=== PATIENT | female | born 1990 | race Caucasian/White ===

== ENCOUNTER 2022-08-20 15:06 | Emergency (ER) | payer OTHER, SELFPAY ==
[2022-08-20 15:15] VITALS: BP 124/68; PULSE 87; RESP 20; TEMP 36.7; O2SAT 99
--- NOTE | 2022-08-20 15:17 | ED.URI ---
HPI - URI/Sore Throat General Chief Complaint: Upper Respiratory Infection Stated Complaint: Upper Respiratory Time Seen by Provider: 08/20/22 15:17 Source: patient, family and RN notes reviewed History of Present Illness HPI Narrative: Patient is a 32-year-old female who presents the urgent care with complaints of hoarse voice, cough, body aches, chills and nasal congestion. Patient states that it started 2 days ago and she was sent home from work due to a COVID exposure. Patient was tested for COVID and it was negative. Patient is wanting repeat COVID testing and to cover all her bases . Patient has 3 children in the home and no symptoms have been shown. Patient has been taking NyQuil and Mucinex and denies of any fever. No other acute complaints. No acute distress noted. Patient aware of the plan of care. Some parts of this dictation were generated by voice recognition software and may contain typographical and/or grammatical inaccuracies. Related Data Home Medications Medication Instructions Recorded Confirmed No Home Medications 08/20/22 08/20/22 Allergies Allergy/AdvReac Type Severity Reaction Status Date / Time Penicillins Allergy Unknown Unknown Verified 08/20/22 15:43 Review of Systems Review of Systems: CONSTITUTIONAL: Denies fever, chills, or sweats. EYES: Denies visual changes, redness, or discharge. ENT: Reports of nasal congestion, hoarse voice CARDIOVASCULAR: Denies chest pain, palpitations, or edema. RESPIRATORY: Reports of cough without dyspnea GASTROINTESTINAL: Denies abdominal pain, nausea, vomiting, or diarrhea. GENITOURINARY: Denies dysuria or hematuria. SKIN: Denies rash or itching. MUSCULOSKELETAL: Denies back pain, joint pain. Reports of body aches NEUROLOGIC: Denies headache, numbness, or weakness. All other systems reviewed are negative, except as documented in HPI. PMFSH Comments At the time of my signature, I reviewed and agree with the nursing past medical, surgical, social, and family history. There is no relevant family history pertinent to the patient complaint. Exam Narrative: GENERAL: This is a well-nourished, well-developed patient, in no apparent distress. HEAD: normocephalic, atraumatic. EYES: PERRL. Sclera clear/white. Vision is grossly intact. EARS: External ears normal, auditory canals clear and without drainage, TMs normal without perforation. Hearing grossly intact. NOSE: External nose normal with no obvious nasal discharge, nares without redness, no rhinorrhea. THROAT: Mucous membranes moist, posterior pharynx clear. Moderate postnasal drainage NECK: Neck supple CARDIOVASCULAR: Regular rate and rhythm without murmurs, gallops, or rubs. RESPIRATORY: Slight crackles throughout without wheezes SKIN: warm, intact with no suspicious lesions or rash, good texture and turgor. NEURO: awake, alert, and oriented to person, place and time. There were no obvious focal neurologic abnormalities. EXTREMITIES: No clubbing, cyanosis, or edema. Course Course Level of Care: Express Care Visit Vital Signs Vital signs: Vital Signs Temperature 98.1 F 08/20/22 15:15 Pulse Rate 87 08/20/22 15:15 Respiratory Rate 20 08/20/22 15:15 Blood Pressure 124/68 08/20/22 15:15 Pulse Oximetry 99 08/20/22 15:15 Oxygen Delivery Room Air 08/20/22 15:15 Temperature 98.1 F 08/20/22 15:15 Pulse Rate 87 08/20/22 15:15 Respiratory Rate 20 08/20/22 15:15 Blood Pressure 124/68 08/20/22 15:15 Pulse Oximetry 99 08/20/22 15:15 Oxygen Delivery Room Air 08/20/22 15:15 Reviewed MDM - URI/Sore Throat MDM Narrative Medical decision making narrative: Patient left prior to discharge. Patient strep swab and flu swab were both negative. Patient is aware that we will be sending a PCR COVID test and will be calling her with results. Patient is also aware that COVID quarantine is only 5 days and she will likely be out of quarantine before her COVID test is resulted.
[2022-08-20 19:14] LABS: SARS-CoV-2 RNA PCR Negative
== END 2022-08-20 16:25 | disposition left against medical advice (07) ==
PROVIDERS: Emergency Provider Nurse Practitioner Family; PCP Family Medicine
DX: J06.9 Acute upper respiratory infection, unspecified (principal); Z20.822 Contact with and (suspected) exposure to COVID-19
CPT/HCPCS: 87081; 87804; 87880; 99203; C9803; G0463; U0003; U0005

== ENCOUNTER 2022-12-29 17:00 | Emergency (ER) | payer OTHER, SELFPAY ==
[2022-12-29 17:04] VITALS: BP 121/84; PULSE 87; RESP 16; TEMP 36.6; O2SAT 100
--- NOTE | 2022-12-29 17:04 | ED.URI ---
HPI - URI/Sore Throat General Chief Complaint: Upper Respiratory Infection Stated Complaint: poss bronchitis Time Seen by Provider: 12/29/22 17:10 Source: patient Mode of arrival: ambulatory Limitations: no limitations History of Present Illness HPI Narrative: Ms. Harrison is a 32-year-old female patient presenting to the clinic today with complaints of possible bronchitis. She reports she is having some hoarseness, mild shortness breath, nonproductive cough that is worse at night. She is a current smoker. She denies any fever or chills. MD elicited complaint: cough and nasal congestion Related Data Allergies Allergy/AdvReac Type Severity Reaction Status Date / Time Penicillins Allergy Unknown Unknown Verified 08/20/22 15:43 Review of Systems Review of Systems: Pertinent positives per HPI. Patient denies any fever, chills, rash, headache, visual changes, dizziness, chest pain, palpitations, nausea, vomiting, diarrhea, constipation, abdominal pain, or any urinary issues. PMFSH Comments At the time of my signature, I reviewed and agree with the nursing past medical, surgical, social, and family history. There is no relevant family history pertinent to the patient complaint. Exam Narrative: General: Well-developed, well nourished, in no apparent distress Head: Normocephalic, atraumatic Eyes: Pupils equally round and reactive to light bilaterally, EOM intact, sclera and conjunctive clear, no discharge, lids normal Ears: TMs intact and clear, ear canals clear, no drainage, grossly hearing normal. Nose: Nares patent, clear nasal discharge, no inflammation, no sinus tenderness. Mouth: Oral pharynx without lesions or masses, good dentition, MMM. Neck: Supple, trachea midline, no enlargement of anterior or posterior cervical nodes, no thyroid masses or goiter palpable. Cardio: Regular rate and rhythm, s1 and s2 normal, no murmur appreciated. Resp: Lung sounds diminished in lower bases, no rhonchi, rales, wheezing or rubs Course Course Emergency Course: Portions of this record may have been created with voice recognition software. Level of Care: Express Care Visit Vital Signs Vital signs: Vital Signs Temperature 36.6 C 12/29/22 17:04 Pulse Rate 87 12/29/22 17:04 Respiratory Rate 16 12/29/22 17:04 Blood Pressure 121/84 12/29/22 17:04 Pulse Oximetry 100 12/29/22 17:04 Oxygen Delivery Room Air 12/29/22 17:04 Temperature 36.6 C 12/29/22 17:04 Pulse Rate 87 12/29/22 17:04 Respiratory Rate 16 12/29/22 17:04 Blood Pressure 121/84 12/29/22 17:04 Pulse Oximetry 100 12/29/22 17:04 Oxygen Delivery Room Air 12/29/22 17:04 Vital signs reviewed MDM - URI/Sore Throat MDM Narrative Medical decision making narrative: At the time of visit patient is resting comfortably on exam table. I suspect patient has upper respiratory infection/bronchitis/reactive upper airway disease. Will send in prescription for prednisone and albuterol inhaler. Supportive measures were discussed with the patient she voiced understanding of discharge instructions agrees to treatment plan Differential Diagnosis Differential diagnosis: Likely upper respiratory infection, otitis media, sinusitis, viral infection, bronchitis, influenza, pharyngitis and other (COVID) Discharge Plan Discharge Clinical Impression: Upper respiratory infection, Bronchitis Patient Disposition: Home, Self-Care Condition: Stable Instructions: Antibiotic Form, Upper Respiratory Infection (ED), Acute Bronchitis (ED) Additional Instructions: Take prescription medications only as prescribed-prednisone and albuterol inhaler Increase fluids and stay well hydrated Tylenol/motrin for pain/fever Flonase and OTC antihistamines as directed Vicks vapor rub to open sinuses Sinus rinses for congestion Cepacol spray, cough drops, throat lozenges, warm tea with honey/lemon, gargle salt water to soothe throat BRAT diet for d
== END 2022-12-29 17:27 | disposition home or self-care (01) ==
PROVIDERS: Emergency Provider Nurse Practitioner Family; PCP Family Medicine
DX: J06.9 Acute upper respiratory infection, unspecified (principal); J40 Bronchitis, not specified as acute or chronic
CPT/HCPCS: 99213; G0463